=== PATIENT | male | born 1990 | race Caucasian/White ===

== ENCOUNTER 2022-01-15 14:32 | Outpatient (CLI) | payer OTHER | END 2022-01-15 14:33 | disposition home or self-care (01) | LOC: LABBT 14:32 | PROVIDERS: ATTEND Urology | DX: N43.3 Hydrocele, unspecified (principal); Z20.822 Contact with and (suspected) exposure to COVID-19 | CPT/HCPCS: U0003; U0005 ==

== ENCOUNTER 2022-01-20 05:50 | Day surgery (SDC) | payer OTHER ==
[2022-01-15 12:06] VITALS: BMI 22.2
[2022-01-20] MEDS ORDERED: Bupivacaine 0.25% HCL 30 ML VIAL ONE (06:24)
[2022-01-20] MEDS ORDERED: Lidocaine 2% Jelly 5 ML TUBE ONE (06:44)
[2022-01-20] MEDS ORDERED: fentaNYL Citrate/PF 100 MCG/2 ML SYRINGE ONE (06:44)
[2022-01-20] MEDS ORDERED: Bacitracin Zinc Ointment 30 gm TUBE ONE (07:01)
[2022-01-20] MEDS ORDERED: Sodium Chloride 0.9% 100 ML ONE (07:26)
[2022-01-20] MEDS ORDERED: CEFAZOLIN 2 GM VIAL ONE (07:26)
== END 2022-01-20 09:52 | disposition home or self-care (01) ==
LOC: SDC 05:50
PROVIDERS: ATTEND Urology
PROC: 0VB60ZZ Excision of Right Tunica Vaginalis, Open Approach (ICD-10-PCS; principal; 2022-01-20)
DX: N43.3 Hydrocele, unspecified (principal); Z86.16 Personal history of COVID-19
CPT/HCPCS: J0690; J3490; S0020